=== PATIENT | female | born 1935 | race Caucasian/White ===

== ENCOUNTER → 2016-03-12 | Outpatient (CLI) | payer MEDICARE, BC | LOC: LAB 08:05 | DX: E10.9 Type 1 diabetes mellitus without complications (principal); I10 Essential (primary) hypertension ==

== ENCOUNTER → 2016-03-20 | Day surgery (SDC) | payer MEDICARE, BC | LOC: MSO 08:49 | DX: H26.9 Unspecified cataract (principal); E11.8 Type 2 diabetes mellitus with unspecified complications; Z79.4 Long term (current) use of insulin | CPT/HCPCS: 00142; A9270-GY; J0171; J2250; J3010; V2632; V2797 ==

== ENCOUNTER → 2016-06-11 | Outpatient (CLI) | payer MEDICARE, BC | LOC: LAB 08:10 | DX: Z00.00 Encounter for general adult medical examination without abnormal findings (principal); E10.9 Type 1 diabetes mellitus without complications; I10 Essential (primary) hypertension ==

== ENCOUNTER → 2016-06-12 | Outpatient (CLI) | payer MEDICARE, BC | LOC: MAMMO 12:50 | DX: Z12.31 Encounter for screening mammogram for malignant neoplasm of breast (principal); Z00.00 Encounter for general adult medical examination without abnormal findings | CPT/HCPCS: G0202 ==

== ENCOUNTER → 2016-06-18 | Outpatient (CLI) | payer MEDICARE, BC | LOC: RAD 10:51 | DX: Z00.00 Encounter for general adult medical examination without abnormal findings (principal); M81.0 Age-related osteoporosis without current pathological fracture ==

== ENCOUNTER → 2016-07-24 | Day surgery (SDC) | payer MEDICARE, BC | LOC: MSO 07:53 | DX: H25.11 Age-related nuclear cataract, right eye (principal); I10 Essential (primary) hypertension; E10.8 Type 1 diabetes mellitus with unspecified complications; Z79.4 Long term (current) use of insulin | CPT/HCPCS: 00142; A9270-GY; J0171; J2550; J3010; V2632; V2797 ==

== ENCOUNTER → 2016-09-10 | Outpatient (CLI) | payer MEDICARE, BC | LOC: LAB 08:13 | DX: E10.9 Type 1 diabetes mellitus without complications (principal) ==

== ENCOUNTER → 2016-12-09 | Outpatient (CLI) | payer MEDICARE, BC | LOC: LAB 10:06 | DX: E10.9 Type 1 diabetes mellitus without complications (principal) ==

== ENCOUNTER → 2017-02-14 | Outpatient (CLI) | payer MEDICARE, BC | LOC: CARDREHAB 08:45 → CARDLAB 08:50 | DX: R07.9 Chest pain, unspecified (principal); R06.02 Shortness of breath; I10 Essential (primary) hypertension; E11.9 Type 2 diabetes mellitus without complications; Z79.4 Long term (current) use of insulin ==

== ENCOUNTER → 2017-02-25 | Outpatient (CLI) | payer MEDICARE, BC | LOC: LAB 10:08 | DX: I20.9 Angina pectoris, unspecified (principal) ==

== ENCOUNTER 2017-02-27 07:49 | Outpatient (RCR) | payer MEDICARE, BC ==
[2017-02-25 10:34] LABS: BUN/CREATININE RATIO 19.8 (6.0-26.0); CALCIUM 8.9 mg/dL (8.4-10.2); POTASSIUM 4.2 mmol/L (3.6-5.0)
== END 2017-05-28 | disposition home or self-care (01) ==
LOC: CARDREHAB
PROVIDERS: Internal Medicine Cardiovascular Disease
DX: Z48.812 Encounter for surgical aftercare following surgery on the circulatory system (principal); Z95.5 Presence of coronary angioplasty implant and graft

== ENCOUNTER → 2017-03-06 | Outpatient (CLI) | payer MEDICARE, BC | LOC: LAB 09:19 | DX: E10.9 Type 1 diabetes mellitus without complications (principal); Z88.1 Allergy status to other antibiotic agents ==

== ENCOUNTER → 2017-04-24 | Outpatient (CLI) | payer MEDICARE, BC ==
[2017-04-24 11:23] LABS: ALBUMIN 3.6 g/dL (3.5-5.0); BUN/CREATININE RATIO 24.1 (6.0-26.0); CALCIUM 9.6 mg/dL (8.4-10.2); POTASSIUM 4.3 mmol/L (3.6-5.0); TOTAL BILIRUBIN 0.5 mg/dL (0.2-1.3); TOTAL PROTEIN 6.5 g/dL (6.3-8.2)
== END ==
LOC: LAB 10:32
PROVIDERS: Internal Medicine Cardiovascular Disease
DX: I50.22 Chronic systolic (congestive) heart failure (principal)

== ENCOUNTER → 2017-05-19 | Outpatient (CLI) | payer MEDICARE, BC | LOC: LAB 07:59 | PROVIDERS: Internal Medicine Cardiovascular Disease | DX: I25.10 Atherosclerotic heart disease of native coronary artery without angina pectoris (principal); Z79.899 Other long term (current) drug therapy ==

== ENCOUNTER → 2017-05-22 | Outpatient (CLI) | payer MEDICARE, BC | LOC: RAD 17:00 | DX: I50.22 Chronic systolic (congestive) heart failure (principal); I50.30 Unspecified diastolic (congestive) heart failure; I51.7 Cardiomegaly; I34.0 Nonrheumatic mitral (valve) insufficiency ==

== ENCOUNTER 2017-05-29 09:38 | Outpatient (RCR) | payer MEDICARE, BC | END 2017-06-30 16:12 | disposition home or self-care (01) | LOC: CARDREHAB 09:38 | DX: Z48.812 Encounter for surgical aftercare following surgery on the circulatory system (principal); Z95.5 Presence of coronary angioplasty implant and graft ==

== ENCOUNTER → 2017-06-06 | Outpatient (CLI) | payer MEDICARE, BC | LOC: LAB 09:30 | DX: E10.9 Type 1 diabetes mellitus without complications (principal); Z88.1 Allergy status to other antibiotic agents ==

== ENCOUNTER → 2017-06-20 | Outpatient (CLI) | payer MEDICARE, BC ==
[2017-06-20 11:00] LABS: HEMATOCRIT 39.7 % (37.0-47.0); HEMOGLOBIN 13.3 g/dL (12.5-16.0); MEAN PLATELET VOLUME 9.8 fl (7.4-10.4); RED BLOOD COUNT 4.39 M/mm3 (4.10-5.30); RED CELL DISTRIBUTION WIDTH 13.2 % (11.5-14.5); WHITE BLOOD COUNT 6.5 K/mm3 (4.8-10.8)
[2017-06-20 11:13] LABS: BUN/CREATININE RATIO 21.9 (6.0-26.0); CALCIUM 8.9 mg/dL (8.4-10.2); POTASSIUM 4.3 mmol/L (3.6-5.0)
== END ==
LOC: LAB 10:51
DX: Z01.812 Encounter for preprocedural laboratory examination (principal); I50.22 Chronic systolic (congestive) heart failure; I10 Essential (primary) hypertension

== ENCOUNTER → 2017-07-16 | Outpatient (CLI) | payer MEDICARE, BC ==
[2017-07-16 12:29] LABS: CALCIUM 9.4 mg/dL (8.4-10.2); POTASSIUM 4.4 mmol/L (3.6-5.0)
== END ==
LOC: LAB 10:35
PROVIDERS: Internal Medicine Cardiovascular Disease
DX: I50.22 Chronic systolic (congestive) heart failure (principal); I25.5 Ischemic cardiomyopathy; I25.10 Atherosclerotic heart disease of native coronary artery without angina pectoris; I10 Essential (primary) hypertension; Z95.810 Presence of automatic (implantable) cardiac defibrillator

== ENCOUNTER → 2017-08-19 | Outpatient (CLI) | payer MEDICARE, BC | LOC: MAMMO 09:08 | DX: Z12.31 Encounter for screening mammogram for malignant neoplasm of breast (principal); Z95.0 Presence of cardiac pacemaker ==

== ENCOUNTER → 2017-08-25 | Outpatient (CLI) | payer MEDICARE, BC | LOC: MAMMO 08:41 | DX: R92.8 Other abnormal and inconclusive findings on diagnostic imaging of breast (principal) ==

== ENCOUNTER → 2017-08-26 | Outpatient (CLI) | payer MEDICARE, BC | LOC: RAD 09:34 | DX: Z45.010 Encounter for checking and testing of cardiac pacemaker pulse generator [battery] (principal); I51.7 Cardiomegaly ==

== ENCOUNTER → 2017-09-08 | Outpatient (CLI) | payer MEDICARE, BC | LOC: LAB 09:11 | DX: E10.9 Type 1 diabetes mellitus without complications (principal) ==

== ENCOUNTER → 2017-10-07 | Outpatient (CLI) | payer MEDICARE, BC ==
[2017-10-07 13:52] LABS: EOS # 0.1 (0.04-0.40); HEMATOCRIT 37.4 % (37.0-47.0); HEMOGLOBIN 12.8 g/dL (12.5-16.0); MEAN CELL VOLUME 91 fl (78-100); MEAN CORPUSCULAR HEMOGLOBIN 31 pg (27-31); MEAN CORPUSCULAR HGB CONC 34 g/dL (33-37); MEAN PLATELET VOLUME 9.4 fl (7.4-10.4); MONO # 0.7 (0.20-0.80); NEU # 7.4 (1.40-6.50); PLATELET COUNT 291 K/mm3 (130-400); RED BLOOD COUNT 4.11 M/mm3 (4.10-5.30); RED CELL DISTRIBUTION WIDTH 13.7 % (11.5-14.5); WHITE BLOOD COUNT 10.2 K/mm3 (4.8-10.8)
[2017-10-07 14:07] LABS: ALBUMIN 3.9 g/dL (3.5-5.0); POTASSIUM 3.5 mmol/L (3.6-5.0); TOTAL BILIRUBIN 0.5 mg/dL (0.2-1.3)
== END ==
LOC: LAB 13:35
PROVIDERS: Nurse Practitioner Family
DX: R19.7 Diarrhea, unspecified (principal)

== ENCOUNTER → 2017-10-10 | Outpatient (CLI) | payer MEDICARE, BC ==
[~2017-10-10] MED LIST: EFFER-K20 MEQ PO
== END ==
LOC: LAB 08:52
DX: R19.7 Diarrhea, unspecified (principal); E03.4 Atrophy of thyroid (acquired)

== ENCOUNTER 2017-10-12 11:44 | Emergency (ER) | payer MEDICARE, BC ==
[~2017-10-12] VITALS: Ht 157.5 cm; Wt 70.0 kg
[2017-10-12 12:52] LABS: EOS # 0.1 (0.04-0.40); EOS % 1.3 % (1.0-5.0); HEMATOCRIT 34.8 % (37.0-47.0); HEMOGLOBIN 11.9 g/dL (12.5-16.0); LYMPH# 1.3 (1.50-4.00); MEAN CELL VOLUME 90 fl (78-100); MEAN CORPUSCULAR HEMOGLOBIN 31 pg (27-31); MEAN CORPUSCULAR HGB CONC 34 g/dL (33-37); MEAN PLATELET VOLUME 9.2 fl (7.4-10.4); MONO # 0.5 (0.20-0.80); NEU # 6.2 (1.40-6.50); PLATELET COUNT 306 K/mm3 (130-400); RED BLOOD COUNT 3.88 M/mm3 (4.10-5.30); RED CELL DISTRIBUTION WIDTH 13.6 % (11.5-14.5); WHITE BLOOD COUNT 8.2 K/mm3 (4.8-10.8)
[2017-10-12 13:13] LABS: CALCIUM 8.4 mg/dL (8.4-10.2)
[2017-10-12 13:15] LABS: POTASSIUM 2.8 mmol/L (3.6-5.0)
[2017-10-12 17:41] LABS: CALCIUM 7.7 mg/dL (8.4-10.2); POTASSIUM 3.8 mmol/L (3.6-5.0)
[2017-10-12 18:19] VITALS: BP 137/62
[2017-10-12] MEDS ORDERED: EFFER-K20 MEQ PO (18:21)
== END 2017-10-12 18:28 | disposition home or self-care (01) ==
LOC: ED 11:44
PROVIDERS: Family Medicine
DX: E86.9 Volume depletion, unspecified (principal); I95.9 Hypotension, unspecified; E87.6 Hypokalemia; R19.7 Diarrhea, unspecified; I25.10 Atherosclerotic heart disease of native coronary artery without angina pectoris; Z95.5 Presence of coronary angioplasty implant and graft; Z95.0 Presence of cardiac pacemaker; I50.9 Heart failure, unspecified; I42.9 Cardiomyopathy, unspecified
CPT/HCPCS: J3480; J7030

== ENCOUNTER → 2017-10-14 | Outpatient (CLI) | payer MEDICARE, BC ==
[2017-10-12 18:19] VITALS: BP 137/62
[2017-10-14 09:39] LABS: CALCIUM 7.3 mg/dL (8.4-10.2); POTASSIUM 3.5 mmol/L (3.6-5.0)
== END ==
LOC: LAB 08:55
PROVIDERS: Family Medicine
DX: E11.9 Type 2 diabetes mellitus without complications (principal); R19.7 Diarrhea, unspecified

== ENCOUNTER → 2017-11-10 | Outpatient (CLI) | payer MEDICARE, BC ==
[2017-10-12 18:19] VITALS: BP 137/62
[2017-11-10 14:50] LABS: ALBUMIN 3.9 g/dL (3.5-5.0); EOS # 0.2 (0.04-0.40); EOS % 3.2 % (1.0-5.0); HEMATOCRIT 37.6 % (37.0-47.0); HEMOGLOBIN 12.5 g/dL (12.5-16.0); LYMPH# 1.8 (1.50-4.00); MEAN CELL VOLUME 93 fl (78-100); MEAN CORPUSCULAR HEMOGLOBIN 31 pg (27-31); MEAN CORPUSCULAR HGB CONC 33 g/dL (33-37); MEAN PLATELET VOLUME 9.8 fl (7.4-10.4); MONO # 0.4 (0.20-0.80); NEU # 4.9 (1.40-6.50); PLATELET COUNT 301 K/mm3 (130-400); POTASSIUM 4.3 mmol/L (3.6-5.0); RED BLOOD COUNT 4.04 M/mm3 (4.10-5.30); TOTAL BILIRUBIN 0.6 mg/dL (0.2-1.3); TOTAL PROTEIN 6.7 g/dL (6.3-8.2); WHITE BLOOD COUNT 7.4 K/mm3 (4.8-10.8)
== END ==
LOC: LAB 09:27
PROVIDERS: Family Medicine
DX: Z00.00 Encounter for general adult medical examination without abnormal findings (principal); I10 Essential (primary) hypertension; E10.9 Type 1 diabetes mellitus without complications; E55.9 Vitamin D deficiency, unspecified; R53.83 Other fatigue

== ENCOUNTER → 2018-02-11 | Outpatient (CLI) | payer MEDICARE, BC | LOC: LAB 09:03 | DX: Z00.00 Encounter for general adult medical examination without abnormal findings (principal); E10.9 Type 1 diabetes mellitus without complications; I10 Essential (primary) hypertension ==

== ENCOUNTER → 2018-03-09 | Outpatient (CLI) | payer MEDICARE, BC | LOC: MAMMO 06:52 | DX: R92.8 Other abnormal and inconclusive findings on diagnostic imaging of breast (principal) ==

== ENCOUNTER → 2018-05-13 | Outpatient (CLI) | payer MEDICARE, BC | LOC: LAB 09:29 | DX: Z00.00 Encounter for general adult medical examination without abnormal findings (principal); E10.9 Type 1 diabetes mellitus without complications; I10 Essential (primary) hypertension ==

== ENCOUNTER → 2018-08-17 | Outpatient (CLI) | payer MEDICARE, BC | LOC: LAB 13:58 | DX: E10.9 Type 1 diabetes mellitus without complications (principal) ==

== ENCOUNTER → 2018-08-26 | Outpatient (CLI) | payer MEDICARE, BC | LOC: MAMMO 08:27 | DX: Z12.31 Encounter for screening mammogram for malignant neoplasm of breast (principal) ==

== ENCOUNTER → 2018-11-16 | Outpatient (CLI) | payer MEDICARE, BC | LOC: LAB 07:48 | DX: E10.9 Type 1 diabetes mellitus without complications (principal); I50.42 Chronic combined systolic (congestive) and diastolic (congestive) heart failure ==

== ENCOUNTER → 2019-02-23 | Outpatient (CLI) | payer MEDICARE, BC | LOC: LAB 09:09 | DX: E10.9 Type 1 diabetes mellitus without complications (principal) ==

== ENCOUNTER → 2019-05-31 | Outpatient (CLI) | payer MEDICARE, BC | LOC: RAD 09:01 | DX: M16.11 Unilateral primary osteoarthritis, right hip (principal); E10.9 Type 1 diabetes mellitus without complications ==

== ENCOUNTER → 2019-08-20 | Outpatient (CLI) | payer MEDICARE, BC | LOC: CARDREHAB 07:37 → CARDLAB 14:02 | DX: I50.22 Chronic systolic (congestive) heart failure (principal); Z95.5 Presence of coronary angioplasty implant and graft | CPT/HCPCS: A9500 ==

== ENCOUNTER → 2019-08-30 | Outpatient (CLI) | payer MEDICARE, BC | LOC: LAB 09:09 | DX: E10.9 Type 1 diabetes mellitus without complications (principal) ==

== ENCOUNTER → 2019-09-01 | Outpatient (CLI) | payer MEDICARE, BC | LOC: MAMMO 09:55 | DX: Z12.31 Encounter for screening mammogram for malignant neoplasm of breast (principal) ==

== ENCOUNTER → 2019-09-21 | Outpatient (CLI) | payer MEDICARE, BC ==
[2019-09-21 10:33] LABS: EOS # 0.1 (0.04-0.40); EOS % 0.9 % (1.0-5.0); HEMATOCRIT 39.2 % (37.0-47.0); LYMPH# 1.7 (1.50-4.00); MEAN CELL VOLUME 93 fl (78-100); MEAN CORPUSCULAR HEMOGLOBIN 31 pg (27-31); MEAN CORPUSCULAR HGB CONC 33 g/dL (33-37); MONO # 0.6 (0.20-0.80); PLATELET COUNT 398 K/mm3 (130-400); WHITE BLOOD COUNT 7.5 K/mm3 (4.8-10.8)
[2019-09-21 10:34] LABS: ALBUMIN 4.3 g/dL (3.4-4.8); POTASSIUM 5.1 mmol/L (3.5-5.1)
[2019-09-21 10:35] LABS: CALCIUM 9.6 mg/dL (8.3-10.5)
[2019-09-21 10:36] LABS: TOTAL PROTEIN 7.4 g/dL (6.2-8.1)
[2019-09-21 10:38] LABS: TOTAL BILIRUBIN 0.3 mg/dL (0.2-1.2)
[2019-09-21 11:35] LABS: PROTHROMBIN TIME 9.8 SECONDS (9.0-12.0)
[2019-09-21 11:51] LABS: URINE APPEARANCE CLEAR; URINE BILIRUBIN NEGATIVE (NEGATIVE); URINE BLOOD NEGATIVE (NEGATIVE); URINE COLOR YELLOW; URINE GLUCOSE NEGATIVE (NEGATIVE); URINE KETONE NEGATIVE (NEGATIVE); URINE LEUKOCYTE ESTERASE TRACE (NEGATIVE); URINE NITRATE NEGATIVE (NEGATIVE); URINE PROTEIN(semi-quant) TRACE mg/dL (NEGATIVE); URINE UROBILINOGEN NORMAL (NORMAL)
== END ==
LOC: AMSURD 10:05
PROVIDERS: Family Medicine
DX: Z01.818 Encounter for other preprocedural examination (principal); Z95.810 Presence of automatic (implantable) cardiac defibrillator

== ENCOUNTER → 2019-09-28 | Outpatient (CLI) | payer MEDICARE, BC ==
[2019-09-28 10:43] LABS: CALCIUM 9.3 mg/dL (8.3-10.5)
== END ==
LOC: LAB 10:25
PROVIDERS: Family Medicine
DX: E10.9 Type 1 diabetes mellitus without complications (principal)

== ENCOUNTER → 2019-10-04 | Outpatient (CLI) | payer MEDICARE, BC ==
[2019-10-04 08:05] LABS: ALBUMIN 4.1 g/dL (3.4-4.8); POTASSIUM 4.5 mmol/L (3.5-5.1)
[2019-10-04 08:06] LABS: CALCIUM 9.4 mg/dL (8.3-10.5)
[2019-10-04 08:09] LABS: TOTAL BILIRUBIN 0.5 mg/dL (0.2-1.2)
== END ==
LOC: RAD 07:37
PROVIDERS: Internal Medicine
DX: Z01.818 Encounter for other preprocedural examination (principal); S22.42XA Multiple fractures of ribs, left side, initial encounter for closed fracture; Z95.0 Presence of cardiac pacemaker

== ENCOUNTER → 2019-10-11 | Outpatient (CLI) | payer MEDICARE, BC | LOC: RAD 10:17 | DX: S22.31XA Fracture of one rib, right side, initial encounter for closed fracture (principal); Z98.890 Other specified postprocedural states; W19.XXXA Unspecified fall, initial encounter ==

== ENCOUNTER → 2019-10-15 | Outpatient (CLI) | payer MEDICARE, BC ==
[2019-10-15 10:00] LABS: EOS % 5.8 % (1.0-5.0); HEMATOCRIT 30.4 % (37.0-47.0); LYMPH# 1.9 (1.50-4.00); MEAN CELL VOLUME 94 fl (78-100); MEAN CORPUSCULAR HEMOGLOBIN 31 pg (27-31); MEAN CORPUSCULAR HGB CONC 33 g/dL (33-37); MEAN PLATELET VOLUME 7.8 fl (7.4-10.4); MONO # 0.9 (0.20-0.80); RED BLOOD COUNT 3.24 M/mm3 (4.10-5.30); RED CELL DISTRIBUTION WIDTH 13.4 % (11.5-14.5); WHITE BLOOD COUNT 12.9 K/mm3 (4.8-10.8)
[2019-10-15 10:09] LABS: ALBUMIN 3.4 g/dL (3.4-4.8)
[2019-10-15 10:10] LABS: POTASSIUM 4.9 mmol/L (3.5-5.1)
[2019-10-15 10:11] LABS: CALCIUM 8.4 mg/dL (8.3-10.5)
[2019-10-15 10:12] LABS: TOTAL PROTEIN 6.1 g/dL (6.2-8.1)
[2019-10-15 10:14] LABS: TOTAL BILIRUBIN 0.4 mg/dL (0.2-1.2)
[2019-10-15 10:18] LABS: MAGNESIUM 1.61 mg/dL (1.60-2.60)
[2019-10-15 10:23] LABS: EOS # 0.8 (0.04-0.40); NEU # 9.3 (1.40-6.50); PLATELET COUNT 535 K/mm3 (130-400)
[2019-10-15 13:00] LABS: URINE APPEARANCE CLEAR; URINE COLOR YELLOW; URINE GLUCOSE 50 mg/dL mg/dL (NEGATIVE); URINE KETONE 1+ (NEGATIVE); URINE PROTEIN(semi-quant) TRACE mg/dL (NEGATIVE)
[2019-10-15 13:01] LABS: URINE BILIRUBIN NEGATIVE (NEGATIVE); URINE BLOOD NEGATIVE (NEGATIVE); URINE LEUKOCYTE ESTERASE TRACE (NEGATIVE); URINE MUCUS PRESENT (NOT PRESENT); URINE NITRATE NEGATIVE (NEGATIVE); URINE UROBILINOGEN NORMAL (NORMAL)
== END ==
LOC: LAB 09:44
PROVIDERS: Internal Medicine
DX: I10 Essential (primary) hypertension (principal); E10.9 Type 1 diabetes mellitus without complications; R07.89 Other chest pain; R30.0 Dysuria

== ENCOUNTER → 2019-10-25 09:00 | Outpatient (RCR) | payer MEDICARE, BC | END | disposition still patient (30) | LOC: PT 10-11 09:54 | DX: M25.551 Pain in right hip (principal); Z96.641 Presence of right artificial hip joint ==

== ENCOUNTER → 2019-11-18 | Outpatient (CLI) | payer MEDICARE, BC ==
[2019-11-18 09:09] LABS: POTASSIUM 4.4 mmol/L (3.5-5.1)
[2019-11-18 09:10] LABS: CALCIUM 9.2 mg/dL (8.3-10.5)
[2019-11-18 09:17] LABS: MAGNESIUM 1.6 mg/dL (1.60-2.60)
== END ==
LOC: LAB 08:44
PROVIDERS: Internal Medicine
DX: E10.9 Type 1 diabetes mellitus without complications (principal); I10 Essential (primary) hypertension; R07.89 Other chest pain

== ENCOUNTER → 2020-01-11 | Outpatient (CLI) | payer MEDICARE, BC | LOC: LAB 11:00 | DX: E10.9 Type 1 diabetes mellitus without complications (principal) ==

== ENCOUNTER → 2020-02-01 | Outpatient (CLI) | payer MEDICARE, BC | LOC: LAB 08:46 | DX: U07.1 COVID-19 (principal) ==

== ENCOUNTER → 2020-02-25 | Outpatient (CLI) | payer MEDICARE, BC | LOC: LAB 08:06 | DX: I25.10 Atherosclerotic heart disease of native coronary artery without angina pectoris (principal) ==

== ENCOUNTER → 2020-04-11 | Outpatient (CLI) | payer MEDICARE, BC | LOC: LAB 08:05 | DX: E10.9 Type 1 diabetes mellitus without complications (principal) ==

== ENCOUNTER → 2020-04-20 | Outpatient (CLI) | payer MEDICARE, BC | LOC: LAB 15:49 | DX: L65.9 Nonscarring hair loss, unspecified (principal) ==

== ENCOUNTER → 2020-07-21 | Outpatient (CLI) | payer MEDICARE, BC | LOC: LAB 08:09 | DX: E10.9 Type 1 diabetes mellitus without complications (principal) ==

== ENCOUNTER → 2020-08-22 | Outpatient (CLI) | payer MEDICARE, BC | LOC: MAMMO 10:00 | DX: Z12.31 Encounter for screening mammogram for malignant neoplasm of breast (principal) ==

== ENCOUNTER → 2020-09-28 | Outpatient (CLI) | payer MEDICARE, BC | LOC: LAB 07:40 | DX: E10.9 Type 1 diabetes mellitus without complications (principal) ==

== ENCOUNTER → 2020-11-29 | Outpatient (CLI) | payer MEDICARE, BC | LOC: RAD 09:57 | DX: M25.532 Pain in left wrist (principal); M25.552 Pain in left hip; W19.XXXA Unspecified fall, initial encounter; Z96.641 Presence of right artificial hip joint ==

== ENCOUNTER → 2020-12-11 | Outpatient (CLI) | payer MEDICARE, BC | LOC: RAD 09:40 | DX: S72.112A Displaced fracture of greater trochanter of left femur, initial encounter for closed fracture (principal) ==

== ENCOUNTER → 2021-01-05 | Outpatient (CLI) | payer MEDICARE, BC | LOC: LAB 07:55 | DX: E10.9 Type 1 diabetes mellitus without complications (principal) ==

== ENCOUNTER 2021-01-15 09:56 | Outpatient (RCR) | payer MEDICARE, BC | END 2021-02-09 | disposition home or self-care (01) | LOC: PT 09:56 | DX: M79.604 Pain in right leg (principal); M79.605 Pain in left leg ==

== ENCOUNTER 2021-02-14 14:03 | Outpatient (RCR) | payer MEDICARE, BC | END 2021-03-12 | disposition home or self-care (01) | LOC: OT | DX: M79.604 Pain in right leg (principal) ==

== ENCOUNTER → 2021-03-22 | Outpatient (CLI) | payer MEDICARE, BC | LOC: LAB 08:19 | DX: Z20.822 Contact with and (suspected) exposure to COVID-19 (principal) ==

== ENCOUNTER → 2021-03-29 | Outpatient (CLI) | payer MEDICARE, BC | LOC: LAB 13:36 | DX: Z20.822 Contact with and (suspected) exposure to COVID-19 (principal) ==

== ENCOUNTER → 2021-04-18 | Outpatient (CLI) | payer MEDICARE, BC ==
[2021-04-18 07:55] LABS: BASO # 0.02 K/mm3 (0.02-0.10); EOS # 0.15 K/mm3 (0.04-0.40); EOS % 2.6 % (1.0-5.0); HEMATOCRIT 37.8 % (37.0-47.0); HEMOGLOBIN 12.8 g/dL (12.5-16.0); LYMPH# 2.05 K/mm3 (1.50-4.00); MEAN CELL VOLUME 96 fl (78-100); MEAN CORPUSCULAR HEMOGLOBIN 32 pg (27-31); MEAN CORPUSCULAR HGB CONC 34 g/dL (33-37); MEAN PLATELET VOLUME 9.2 fl (7.4-10.4); MONO # 0.38 K/mm3 (0.20-0.80); NEU # 3.15 K/mm3 (1.40-6.50); PLATELET COUNT 326 K/mm3 (130-400); RED BLOOD COUNT 3.96 M/mm3 (4.10-5.30); WHITE BLOOD COUNT 5.8 K/mm3 (4.8-10.8)
[2021-04-18 07:59] LABS: POTASSIUM 4.8 mmol/L (3.5-5.1)
[2021-04-18 08:00] LABS: CALCIUM 9.8 mg/dL (8.3-10.5)
[2021-04-18 08:03] LABS: TOTAL BILIRUBIN 0.6 mg/dL (0.2-1.2)
== END ==
LOC: LAB 07:13
PROVIDERS: Family Medicine
DX: Z00.00 Encounter for general adult medical examination without abnormal findings (principal); E10.9 Type 1 diabetes mellitus without complications; E78.5 Hyperlipidemia, unspecified; E55.9 Vitamin D deficiency, unspecified

== ENCOUNTER → 2021-07-12 | Outpatient (CLI) | payer MEDICARE, BC | LOC: LAB 07:36 | DX: E10.9 Type 1 diabetes mellitus without complications (principal) ==

== ENCOUNTER → 2021-08-22 | Outpatient (CLI) | payer MEDICARE, BC | LOC: MAMMO 10:45 | DX: Z12.31 Encounter for screening mammogram for malignant neoplasm of breast (principal) ==

== ENCOUNTER → 2021-10-19 | Outpatient (CLI) | payer MEDICARE, BC | LOC: LAB 07:35 | DX: E10.9 Type 1 diabetes mellitus without complications (principal) ==

== ENCOUNTER → 2022-01-01 | Outpatient (CLI) | payer MEDICARE, BC | LOC: LAB 09:12 | DX: Z20.822 Contact with and (suspected) exposure to COVID-19 (principal) ==

== ENCOUNTER → 2022-03-01 | Outpatient (CLI) | payer MEDICARE, BC | LOC: LAB 07:57 | DX: E10.9 Type 1 diabetes mellitus without complications (principal); I11.0 Hypertensive heart disease with heart failure; M16.9 Osteoarthritis of hip, unspecified; E66.3 Overweight; M81.0 Age-related osteoporosis without current pathological fracture; J30.2 Other seasonal allergic rhinitis; E55.9 Vitamin D deficiency, unspecified; Z95.810 Presence of automatic (implantable) cardiac defibrillator ==

== ENCOUNTER → 2022-10-18 | Outpatient (CLI) | payer MEDICARE, BC | LOC: LAB 07:42 | DX: I11.0 Hypertensive heart disease with heart failure (principal); I50.1 Left ventricular failure, unspecified; M16.9 Osteoarthritis of hip, unspecified; E66.3 Overweight; M81.0 Age-related osteoporosis without current pathological fracture; J30.2 Other seasonal allergic rhinitis; E10.9 Type 1 diabetes mellitus without complications; E55.9 Vitamin D deficiency, unspecified; Z95.810 Presence of automatic (implantable) cardiac defibrillator ==

== ENCOUNTER → 2022-12-02 | Outpatient (CLI) | payer MEDICARE, BC | LOC: RAD 08:33 | DX: I51.7 Cardiomegaly (principal); M41.85 Other forms of scoliosis, thoracolumbar region; M47.814 Spondylosis without myelopathy or radiculopathy, thoracic region; M47.816 Spondylosis without myelopathy or radiculopathy, lumbar region; S22.39XA Fracture of one rib, unspecified side, initial encounter for closed fracture ==

== ENCOUNTER → 2022-12-11 | Outpatient (CLI) | payer MEDICARE, BC ==
[2022-12-11 16:16] LABS: ALBUMIN 4.1 g/dL (3.4-4.8)
[2022-12-11 16:17] LABS: CALCIUM 9.5 mg/dL (8.3-10.5)
[2022-12-11 16:18] LABS: TOTAL PROTEIN 7.2 g/dL (6.2-8.1)
[2022-12-11 16:20] LABS: TOTAL BILIRUBIN 0.3 mg/dL (0.2-1.2)
== END ==
LOC: LAB 15:53
PROVIDERS: Nurse Practitioner
DX: Z13.820 Encounter for screening for osteoporosis (principal); I50.9 Heart failure, unspecified; M89.8X9 Other specified disorders of bone, unspecified site; R60.0 Localized edema

== ENCOUNTER → 2022-12-12 | Outpatient (CLI) | payer MEDICARE, BC | LOC: VAS 06:10 → RAD 06:10 | DX: I50.9 Heart failure, unspecified (principal) ==

== ENCOUNTER → 2023-01-09 | Outpatient (CLI) | payer MEDICARE, BC | LOC: LAB 08:41 | DX: I11.0 Hypertensive heart disease with heart failure (principal); M81.0 Age-related osteoporosis without current pathological fracture; I50.1 Left ventricular failure, unspecified; M16.9 Osteoarthritis of hip, unspecified; E66.9 Obesity, unspecified; J30.2 Other seasonal allergic rhinitis; E10.9 Type 1 diabetes mellitus without complications; E55.9 Vitamin D deficiency, unspecified; Z95.810 Presence of automatic (implantable) cardiac defibrillator ==

== ENCOUNTER → 2023-04-14 | Outpatient (CLI) | payer MEDICARE, BC | LOC: LAB 08:03 | DX: E10.9 Type 1 diabetes mellitus without complications (principal) ==

== ENCOUNTER → 2023-07-11 | Outpatient (CLI) | payer MEDICARE, BC | LOC: LAB 07:25 | DX: E10.9 Type 1 diabetes mellitus without complications (principal) ==

== ENCOUNTER → 2023-10-17 | Outpatient (CLI) | payer MEDICARE, BC | LOC: LAB 07:54 | DX: E10.9 Type 1 diabetes mellitus without complications (principal) ==

== ENCOUNTER → 2023-12-15 | Outpatient (CLI) | payer MEDICARE, BC | LOC: RAD 15:31 → VAS 15:31 → RAD 16:00 | DX: I08.3 Combined rheumatic disorders of mitral, aortic and tricuspid valves (principal); I50.20 Unspecified systolic (congestive) heart failure ==

== ENCOUNTER → 2024-01-09 | Outpatient (CLI) | payer MEDICARE, BC | LOC: LAB 08:29 | DX: E10.9 Type 1 diabetes mellitus without complications (principal) ==

== ENCOUNTER → 2024-04-08 | Outpatient (CLI) | payer MEDICARE, BC ==
[2024-04-08 08:35] LABS: BASO # 0.02 K/mm3 (0.02-0.10); EOS # 0.16 K/mm3 (0.04-0.40); EOS % 3.2 % (1.0-5.0); HEMOGLOBIN 12.6 g/dL (12.5-16.0); LYMPH# 1.59 K/mm3 (1.50-4.00); MEAN CELL VOLUME 97 fl (78-100); MEAN CORPUSCULAR HEMOGLOBIN 32 pg (27-31); MEAN CORPUSCULAR HGB CONC 33 g/dL (33-37); MEAN PLATELET VOLUME 9.3 fl (7.4-10.4); MONO # 0.35 K/mm3 (0.20-0.80); NEU # 2.84 K/mm3 (1.40-6.50); PLATELET COUNT 286 K/mm3 (130-400); RED BLOOD COUNT 3.92 M/mm3 (4.10-5.30); RED CELL DISTRIBUTION WIDTH 12.5 % (11.5-14.5)
[2024-04-08 08:45] LABS: ALBUMIN 4.2 g/dL (3.4-4.8)
[2024-04-08 08:46] LABS: CALCIUM 9.8 mg/dL (8.3-10.5)
[2024-04-08 08:47] LABS: TOTAL PROTEIN 7.4 g/dL (6.2-8.1)
[2024-04-08 08:49] LABS: TOTAL BILIRUBIN 0.4 mg/dL (0.2-1.2)
== END ==
LOC: LAB 08:19
PROVIDERS: Family Medicine
DX: E10.9 Type 1 diabetes mellitus without complications (principal); E78.5 Hyperlipidemia, unspecified; E55.9 Vitamin D deficiency, unspecified; I11.0 Hypertensive heart disease with heart failure; I50.1 Left ventricular failure, unspecified